=== PATIENT | male | born 1995 | race Caucasian/White ===

== ENCOUNTER 2016-11-09 12:49 | Emergency (ER) | payer SELFPAY ==
[~2016-11-09] VITALS: Ht 180.3 cm; Wt 145.5 kg
[~2016-11-09 12:49] MED LIST: IBUP800T23 PO
[2016-11-09 12:50] VITALS: BP 158/82; PULSE 78; RESP 15; TEMP 98.2; O2SAT 99
[2016-11-09 14:44] VITALS: BP 150/83; PULSE 63; RESP 16; TEMP 98; O2SAT 98
[2016-11-09] MEDS ORDERED: ALUMINUM/MAGNESIUM/SIMETH 30 ML CUP PO ONE (15:30)
[2016-11-09] MEDS ORDERED: SODIUM CHLORIDE 0.9% FLUSH 10 ML FLUSH IV FLUSH PRN (15:30)
[2016-11-09] MEDS ORDERED: LIDOCAINE VISCOUS 2% SOLN 15 ML UDC PO ONE (15:30)
[2016-11-09 15:48] LABS: AUTOMATED NEUTROPHIL # 5.1 TH/MM3 (1.8-7.7); BASOPHIL % 0.6 % (0.0-2.0); EOSINOPHIL # 0.1 TH/MM3 (0-0.4); EOSINOPHIL % 1.2 % (0.0-4.0); HEMATOCRIT 45.3 % (39.0-51.0); HEMO FLAGS DIFF FINAL; LYMPH % 22.7 % (9.0-44.0); LYMPHOCYTE # 1.7 TH/MM3 (1.0-4.8); MEAN CELL VOLUME 88.1 FL (80.0-100.0); MEAN CORPUSCULAR HEMOGLOBIN 29.8 PG (27.0-34.0); MEAN CORPUSCULAR HGB CONC 33.9 % (32.0-36.0); MONO % 8.1 % (0.0-8.0); NEUT % 67.4 % (16.0-70.0); PLATELET COUNT 219 TH/MM3 (150-450); RED BLOOD COUNT 5.15 MIL/MM3 (4.50-5.90); RED CELL DISTRIBUTION WIDTH 12.9 % (11.6-17.2); WHITE BLOOD COUNT 7.6 TH/MM3 (4.0-11.0)
[2016-11-09] MEDS ORDERED: MAAL10003 CHEW (15:55)
--- NOTE | 2016-11-09 15:56 | PD ---
HPI Chief Complaint: Abdominal Pain Time Seen by Provider: 14:38 Travel History International Travel<30 days: No Contact w/Intl Traveler<30days: No Traveled to known affect area: No History of Present Illness HPI The patient's 21 years old. He complains of epigastric abdominal pain in the mornings for one week. Today it persisted throughout the course of the day today leading to ER visit. Appetite normal. No n/v/d. Quality sharp. Last oral intake was steak and shake. PFSH Past Medical History Diminished Hearing: No Immunizations Current: Yes Social History Alcohol Use: No Tobacco Use: No Substance Use: No Allergies-Medications (Allergen,Severity, Reaction): Coded Allergies: No Known Allergies (Verified , 11/09/16) Reported Meds & Prescriptions Reported Meds & Active Scripts Active Maalox Advanced Maximum Strength (Calcium Carbonate-Simethicone) 1,000-60 Mg Chew 1-2 Tab CHEW TID PRN 5 Days Review of Systems Except as stated in HPI: all other systems reviewed are Neg Physical Exam Narrative GENERAL: 21 -year-old male well-nourished well-developed SKIN: Focused skin assessment warm/dry. HEAD: Atraumatic. Normocephalic. EYES: Pupils equal and round. No scleral icterus. No injection or drainage. ENT: No nasal bleeding or discharge. Mucous membranes pink and moist. NECK: Trachea midline. No JVD. CARDIOVASCULAR: Regular rate and rhythm. No murmur appreciated. RESPIRATORY: No accessory muscle use. Clear to auscultation. Breath sounds equal bilaterally. GASTROINTESTINAL: Minimal epigastric tenderness. Soft. MUSCULOSKELETAL: No obvious deformities. No clubbing. No cyanosis. No edema. NEUROLOGICAL: Awake and alert. No obvious cranial nerve deficits. Motor grossly within normal limits. Normal speech. PSYCHIATRIC: Appropriate mood and affect; insight and judgment normal. Data Data Last Documented VS Vital Signs Date Time Temp Pulse Resp B/P Pulse Ox O2 Delivery O2 Flow Rate FiO2 11/09/16 15:42 Room Air 11/09/16 14:44 98.0 63 16 150/83 98 Vital signs reviewed Orders Complete Blood Count With Diff (11/09/16 15:26) Comprehensive Metabolic Panel (11/09/16 15:26) Lipase (11/09/16 15:26) Iv Access Insert/Monitor (11/09/16 15:26) Ecg Monitoring (11/09/16 15:26) Oximetry (11/09/16 15:26) Sodium Chloride 0.9% Flush (Ns Flush) (11/09/16 15:30) Al-Mag Hy-Si 40-40-4 Mg/Ml Liq (Mag-Al P (11/09/16 15:30) Lidocaine 2% Viscous (Xylocaine 2% Visco (11/09/16 15:30) Labs Laboratory Tests Test 11/09/16 15:35 White Blood Count 7.6 TH/MM3 Red Blood Count 5.15 MIL/MM3 Hemoglobin 15.3 GM/DL Hematocrit 45.3 % Mean Corpuscular Volume 88.1 FL Mean Corpuscular Hemoglobin 29.8 PG Mean Corpuscular Hemoglobin 33.9 % Concent Red Cell Distribution Width 12.9 % Platelet Count 219 TH/MM3 Mean Platelet Volume 10.0 FL Neutrophils (%) (Auto) 67.4 % Lymphocytes (%) (Auto) 22.7 % Monocytes (%) (Auto) 8.1 % Eosinophils (%) (Auto) 1.2 % Basophils (%) (Auto) 0.6 % Neutrophils # (Auto) 5.1 TH/MM3 Lymphocytes # (Auto) 1.7 TH/MM3 Monocytes # (Auto) 0.6 TH/MM3 Eosinophils # (Auto) 0.1 TH/MM3 Basophils # (Auto) 0.0 TH/MM3 CBC Comment DIFF FINAL Differential Comment Sodium Level 138 MEQ/L Potassium Level 4.0 MEQ/L Chloride Level 104 MEQ/L Carbon Dioxide Level 25.5 MEQ/L Anion Gap 9 MEQ/L Blood Urea Nitrogen 9 MG/DL Creatinine 1.00 MG/DL Estimat Glomerular Filtration 95 ML/MIN Rate Random Glucose 93 MG/DL Calcium Level 9.1 MG/DL Aspartate Amino Transf 19 U/L (AST/SGOT) Alanine Aminotransferase 35 U/L (ALT/SGPT) Albumin 4.1 GM/DL Lipase 68 U/L MDM Medical Decision Making Medical Screen Exam Complete: Yes Emergency Medical Condition: Yes Medical Record Reviewed: Yes Differential Diagnosis Constipation, Gastritis, Acute Cholecystitis, Biliary Colic, Pancreatitis, REAVES , Hepatitis, Bowel Obstruction, Cystitis, Mesenteric Ischemia, AAA, Appendicitis , Renal Stone/Hydronephrosis, GERD, perforated viscous Narrative Course CBC & BMP Diagram 11/09/16 15:35 LFTs normal Lipase normal The patient is resting comfortably and feels better, is alert and in no distress. The patients results and examination findings were discussed. The repeat examination is unremarkable and benign. The history, exam, diagnostic testing, and current condition do not suggest any significant pathology to warrant further testing, continued ED treatment, admission, or surgical evaluation at this point. The vital signs have been stable. The patient does not have uncontrollable pain, intractable vomiting, or other significant symptoms. The patient's condition is stable and appropriate for discharge. The patient will pursue further outpatient evaluation with a primary care physician or other designated or consulting physician as indicated in the discharge instructions. The patient expressed understanding and was agreeable with this plan. Diagnosis Primary Impression: Abdominal pain Qualified Code: R10.9 - Abdominal pain, unspecified location Referrals: Shaji Restrepo MD 2 days Additional Instructions: You have a choice when it comes to health care, and we are glad that you chose [facility]. Hopefully, we have met your expectations on today's visit. You are welcome to return to [facility] at any time, as we are committed to meeting the health care needs of our community. Med/Other Pt SpecificInfo: No Change to Meds Scripts Calcium Carbonate-Simethicone (Maalox Advanced Maximum Strength)1,000-60 Mg Chew1-2 Tab CHEW TID PRN (INDIGESTION OR UPSET STOMACH) 5 Days Ref 0 Prov:Ross Mathur MD 11/09/16 Disposition: 01 DISCHARGE HOME Condition: Stable Ross Mathur MD Nov 09, 2016 15:56
[2016-11-09 16:09] LABS: ANION GAP 9 MEQ/L (5-15); AST (GOT) 19 U/L (15-39); BICARBONATE 25.5 MEQ/L (21.0-32.0); BLOOD UREA NITROGEN 9 MG/DL (7-18); CHLORIDE 104 MEQ/L (98-107); GLOMERULAR FILTRATION RATE 95 ML/MIN (>89); SODIUM (NA) 138 MEQ/L (136-145)
[2016-11-09 16:10] LABS: ALT (GPT) 35 U/L (9-52)
[2016-11-09 16:11] LABS: ALKALINE PHOSPHATASE 75 U/L (45-117); TOTAL BILIRUBIN ADULT 0.4 MG/DL (0.2-1.0)
== END 2016-11-09 17:01 | disposition home or self-care (01) ==
LOC: NEPE 12:49
DX: R10.9 Unspecified abdominal pain (principal)
CPT/HCPCS: 80053; 83690; 85025; 99283

== ENCOUNTER 2016-11-16 12:56 | Emergency (ER) | payer SELFPAY ==
[~2016-11-16] VITALS: Ht 180.3 cm; Wt 143.5 kg
[~2016-11-16 12:56] MED LIST changes: -IBUP800T23 PO; +MAAL10003 CHEW
[2016-11-16 13:03] VITALS: BP 124/86; PULSE 72; RESP 18; TEMP 98.4; O2SAT 99
[2016-11-16] MEDS ORDERED: [UNRECOGNIZED DRUG - CODE] (13:21)
[2016-11-16] MEDS ORDERED: LIDOCAINE VISCOUS 2% SOLN 15 ML UDC PO ONE (13:30)
[2016-11-16] MEDS ORDERED: ALUMINUM/MAGNESIUM/SIMETH 30 ML CUP PO ONE (13:30)
[2016-11-16] MEDS ORDERED: SODIUM CHLORIDE 0.9% FLUSH 10 ML FLUSH IV FLUSH PRN ×2 (13:30)
[2016-11-16 13:34] VITALS: O2SAT 98
[2016-11-16 13:39] LABS: AUTOMATED NEUTROPHIL # 4.5 TH/MM3 (1.8-7.7); BASOPHIL # 0.1 TH/MM3 (0-0.2); BASOPHIL % 0.9 % (0.0-2.0); EOSINOPHIL # 0.1 TH/MM3 (0-0.4); EOSINOPHIL % 1.4 % (0.0-4.0); HEMATOCRIT 45.5 % (39.0-51.0); HEMO FLAGS DIFF FINAL; LYMPH % 32.5 % (9.0-44.0); LYMPHOCYTE # 2.6 TH/MM3 (1.0-4.8); MEAN CORPUSCULAR HEMOGLOBIN 29.3 PG (27.0-34.0); MEAN CORPUSCULAR HGB CONC 33.3 % (32.0-36.0); MONO % 8.8 % (0.0-8.0); NEUT % 56.4 % (16.0-70.0); PLATELET COUNT 231 TH/MM3 (150-450); RED BLOOD COUNT 5.17 MIL/MM3 (4.50-5.90); RED CELL DISTRIBUTION WIDTH 11.8 % (11.6-17.2)
[2016-11-16 13:49] LABS: CHLORIDE 107 MEQ/L (98-107); POTASSIUM 3.7 MEQ/L (3.5-5.1); SODIUM (NA) 142 MEQ/L (136-145)
[2016-11-16] MEDS ORDERED: NEXI40CA PO (13:52)
[2016-11-16 13:53] LABS: ANION GAP 8 MEQ/L (5-15); BICARBONATE 27.1 MEQ/L (21.0-32.0); BLOOD UREA NITROGEN 12 MG/DL (7-18)
--- NOTE | 2016-11-16 13:54 | PD ---
HPI Chief Complaint: Abdominal Pain Time Seen by Provider: 13:16 Travel History International Travel<30 days: No Contact w/Intl Traveler<30days: No Traveled to known affect area: No History of Present Illness HPI Patient's 21 years old. He arrives with epigastric abdominal pain. He was seen here just over a week ago and diagnosed with gastritis after a workup including CBC CMP and lipase was normal. The patient reports having some success with Pepcid at home. Yesterday he ate [place] food including pork fried rice and boneless ribs. Since then he's had epigastric pain. Specifically worse in the mornings and then goes away. PFSH Past Medical History Diminished Hearing: No Immunizations Current: Yes ?: Not Past Surgical History Surgical History: No Previous Surgery Social History Alcohol Use: No Tobacco Use: No Substance Use: No Allergies-Medications (Allergen,Severity, Reaction): Coded Allergies: No Known Allergies (Verified , 11/16/16) Reported Meds & Prescriptions Reported Meds & Active Scripts Active Nexium (Esomeprazole DR) 40 Mg Capdr 40 Mg PO DAILY 30 Days Review of Systems Except as stated in HPI: all other systems reviewed are Neg Physical Exam Narrative GENERAL: Well-nourished well-developed 21-year-old male no acute distress SKIN: Focused skin assessment warm/dry. HEAD: Atraumatic. Normocephalic. EYES: Pupils equal and round. No scleral icterus. No injection or drainage. ENT: No nasal bleeding or discharge. Mucous membranes pink and moist. NECK: Trachea midline. No JVD. CARDIOVASCULAR: Regular rate and rhythm. No murmur appreciated. RESPIRATORY: No accessory muscle use. Clear to auscultation. Breath sounds equal bilaterally. GASTROINTESTINAL: Soft. Minimal tenderness epigastrium. MUSCULOSKELETAL: No obvious deformities. No clubbing. No cyanosis. No edema. NEUROLOGICAL: Awake and alert. No obvious cranial nerve deficits. Motor grossly within normal limits. Normal speech. PSYCHIATRIC: Appropriate mood and affect; insight and judgment normal. Data Data Last Documented VS Vital Signs Date Time Temp Pulse Resp B/P Pulse Ox O2 Delivery O2 Flow Rate FiO2 11/16/16 15:02 53 16 121/55 100 Room Air 11/16/16 13:03 98.4 Vital signs reviewed Orders Sodium Chloride 0.9% Flush (Ns Flush) (11/16/16 13:30) Al-Mag Hy-Si 40-40-4 Mg/Ml Liq (Mag-Al P (11/16/16 13:30) Lidocaine 2% Viscous (Xylocaine 2% Visco (11/16/16 13:30) Complete Blood Count With Diff (11/16/16 13:24) Comprehensive Metabolic Panel (11/16/16 13:24) Lipase (11/16/16 13:24) Iv Access Insert/Monitor (11/16/16 13:24) Ecg Monitoring (11/16/16 13:24) Oximetry (11/16/16 13:24) Sodium Chloride 0.9% Flush (Ns Flush) (11/16/16 13:30) Morphine Inj (Morphine Inj) (11/16/16 14:15) Ct Abd/Pel W Iv Contrast(Rout) (11/16/16 14:04) Iohexol 350 Inj (Omnipaque 350 Inj) (11/16/16 15:01) Labs Laboratory Tests Test 11/16/16 13:35 White Blood Count 8.0 TH/MM3 Red Blood Count 5.17 MIL/MM3 Hemoglobin 15.1 GM/DL Hematocrit 45.5 % Mean Corpuscular Volume 88.0 FL Mean Corpuscular Hemoglobin 29.3 PG Mean Corpuscular Hemoglobin 33.3 % Concent Red Cell Distribution Width 11.8 % Platelet Count 231 TH/MM3 Mean Platelet Volume 9.6 FL Neutrophils (%) (Auto) 56.4 % Lymphocytes (%) (Auto) 32.5 % Monocytes (%) (Auto) 8.8 % Eosinophils (%) (Auto) 1.4 % Basophils (%) (Auto) 0.9 % Neutrophils # (Auto) 4.5 TH/MM3 Lymphocytes # (Auto) 2.6 TH/MM3 Monocytes # (Auto) 0.7 TH/MM3 Eosinophils # (Auto) 0.1 TH/MM3 Basophils # (Auto) 0.1 TH/MM3 CBC Comment DIFF FINAL Differential Comment Sodium Level 142 MEQ/L Potassium Level 3.7 MEQ/L Chloride Level 107 MEQ/L Carbon Dioxide Level 27.1 MEQ/L Anion Gap 8 MEQ/L Blood Urea Nitrogen 12 MG/DL Creatinine 1.10 MG/DL Estimat Glomerular Filtration 85 ML/MIN Rate Random Glucose 100 MG/DL Calcium Level 9.5 MG/DL Total Bilirubin 0.6 MG/DL Aspartate Amino Transf 26 U/L (AST/SGOT) Alanine Aminotransferase 44 U/L (ALT/SGPT) Alkaline Phosphatase 79 U/L Total Protein 8.2 GM/DL Albumin 4.0 GM/DL Lipase 72 U/L MDM Medical Decision Making Medical Screen Exam Complete: Yes Emergency Medical Condition: Yes Medical Record Reviewed: Yes Differential Diagnosis Constipation, Gastritis, Acute Cholecystitis, Biliary Colic, Pancreatitis, REAVES , Hepatitis, Bowel Obstruction, Cystitis, Mesenteric Ischemia, AAA, Appendicitis , Renal Stone/Hydronephrosis, GERD, perforated viscous Narrative Course CBC normal CMP normal Lipase normal CT pelvis reveals gallbladder stones without signs of cholecystitis and blood work less consistent with acute cholecystitis The patient is resting comfortably and feels better, is alert and in no distress. The patients results and examination findings were discussed. The repeat examination is unremarkable and benign. The history, exam, diagnostic testing, and current condition do not suggest any significant pathology to warrant further testing, continued ED treatment, admission, or surgical evaluation at this point. The vital signs have been stable. The patient does not have uncontrollable pain, intractable vomiting, or other significant symptoms. The patient's condition is stable and appropriate for discharge. The patient will pursue further outpatient evaluation with a primary care physician or other designated or consulting physician as indicated in the discharge instructions. The patient expressed understanding and was agreeable with this plan. Diagnosis Primary Impression: Epigastric abdominal pain Referrals: Shaji Restrepo MD 2 days General Surgeon call for appointment Additional Instructions: You have a choice when it comes to health care, and we are glad that you chose [email or web address]. Hopefully, we have met your expectations on today's visit. You are welcome to return to [email or web address] at any time, as we are committed to meeting the health care needs of our community. Med/Other Pt SpecificInfo: Prescription(s) given Scripts Hydrocodone-Acetaminophen (Lortab)5-325 Mg Tab1-2 Tab PO Q6H PRN (PAIN SCALE 6 TO 10) #12 TAB Ref 0 Prov:Ross Mathur MD 11/16/[address] (Nexium)40 Mg Capdr40 Mg PO DAILY 30 Days Ref 0 Prov:Ross Mathur MD 11/16/16 Disposition: 01 DISCHARGE HOME Condition: Stable Ross Mathur MD Nov 16, 2016 13:54
[2016-11-16 13:56] LABS: ALT (GPT) 44 U/L (9-52); AST (GOT) 26 U/L (15-39); GLOMERULAR FILTRATION RATE 85 ML/MIN (>89)
[2016-11-16 13:57] LABS: TOTAL BILIRUBIN ADULT 0.6 MG/DL (0.2-1.0)
[2016-11-16 13:59] LABS: ALKALINE PHOSPHATASE 79 U/L (45-117)
[2016-11-16] MEDS ORDERED: MORPHINE SULFATE 8 MG/ML INJ IV PUSH ONE (14:15)
[2016-11-16] MEDS ORDERED: IOHEXOL 350 MG/ML 10 ML VIAL (for RAD DIAG) IV ONE (15:01)
[2016-11-16 15:02] VITALS: BP 121/55; PULSE 53; RESP 16; O2SAT 100
--- NOTE | 2016-11-16 15:21 | RADRPT ---
EXAM DATE/TIME: 11/16/2016 14:43 [facility] COMPARISON: No previous studies available for comparison. INDICATIONS : Upper mid abdominal pain for 1 week IV CONTRAST: 95 cc Omnipaque 350 (iohexol) IV ORAL CONTRAST: No oral contrast ingested. RADIATION DOSE: 24.70 CTDIvol (mGy) MEDICAL HISTORY : None SURGICAL HISTORY : None. ENCOUNTER: Initial ACUITY: 1 week PAIN SCALE: 10/10 LOCATION: Bilateral abdomen TECHNIQUE: Volumetric scanning of the abdomen and pelvis was performed. Using automated exposure control and ad justment of the mA and/or kV according to patient size, radiation dose was kept as low as reasonably achievable to obtain optimal diagnostic quality images. DICOM format image data is available electro nically for review and comparison. FINDINGS: LOWER LUNGS: The visualized lower lungs are clear. LIVER: Liver demonstrates low density with areas of sparing around the gallbladder fossa. Liver measures 18. 9 cm in length. There is no dilation of the biliary tree. There are noncalcified stones in the gall bladder. SPLEEN: Normal size without lesion. PANCREAS: Within normal limits. KIDNEYS: Normal in size and shape. There is no mass, stone or hydronephrosis. ADRENAL GLANDS: Within normal limits. VASCULAR: There is no aortic aneurysm. BOWEL/MESENTERY: The stomach, small bowel, and colon demonstrate no acute abnormality. There is no free intraperitone al air or fluid. Appendix is normal. ABDOMINAL WALL: Within normal limits. RETROPERITONEUM: There is no lymphadenopathy. BLADDER: No wall thickening or mass. REPRODUCTIVE: Within normal limits. INGUINAL: There is no lymphadenopathy or hernia. MUSCULOSKELETAL: No acute abnormality. CONCLUSION: 1. No acute finding is identified to explain the clinical symptoms. There is cholelithiasis but there is no gallbladder wall thickening or inflammatory change appreciated. 2. Mild hepatomegaly with steatosis. Greg Berry MD on November 16, 2016 at 15:15 Board Certified Radiologist. This report was verified electronically.
[2016-11-16] MEDS ORDERED: HYDR-3533 PO ×2 (15:26→15:35)
== END 2016-11-16 15:50 | disposition home or self-care (01) ==
LOC: PHED 12:56
DX: R10.13 Epigastric pain (principal)
CPT/HCPCS: 74177; 80053; 83690; 85025; 96374; 99285; J2270; Q9967

== ENCOUNTER 2016-12-07 07:40 | Emergency (ER) | payer MEDICAID ==
[~2016-12-07] VITALS: Ht 180.3 cm; Wt 145.0 kg
[~2016-12-07 07:40] MED LIST changes: +HYDR-3533 PO; -MAAL10003 CHEW; +NEXI40CA PO
[2016-12-07 07:43] VITALS: BP 144/99; PULSE 83; RESP 17; TEMP 98.2; O2SAT 99
[2016-12-07] MEDS ORDERED: ALUMINUM/MAGNESIUM/SIMETH 30 ML CUP PO ONE (08:30)
[2016-12-07] MEDS ORDERED: ONDANSETRON HCL 4 MG/2 ML VIAL IVP ONE (08:30)
[2016-12-07] MEDS ORDERED: PANTOPRAZOLE SODIUM 40 MG VIAL IVP ONE (08:30)
[2016-12-07] MEDS ORDERED: ATROPINE/SCOPOLAM/HYOSCYAM/PB ELIXIR 10 ML CUP PO ONE (08:30)
--- NOTE | 2016-12-07 08:30 | PD ---
HPI Chief Complaint: Abdominal Pain Time Seen by Provider: 08:08 Travel History International Travel<30 days: No Contact w/Intl Traveler<30days: No Traveled to known affect area: No History of Present Illness HPI 21-year-old male complains of epigastric abdominal pain. Patient states that the pain started this morning. Patient denies any nausea vomiting. Patient states that the pain in cramping pain localized to the epigastric area. Patient denies any pain radiation. Patient denies any fever chills. Patient was seen in emergency room on November 09 and November 16, 2016. Patient had epigastric abdominal pain at that time. CT scan abdomen pelvis shows cholelithiasis. Patient was advised to take Nexium and follow-up with local physician. Patient however has not taken the Nexium. Patient also was given prescription for Lortab that he takes once in a while for abdominal pain. Patient denies any dysuria or frequency. Patient denies any fever chills. PFSH Past Medical History Diminished Hearing: No Gastrointestinal Disorders: Yes (GALLSTONES) Immunizations Current: Yes Influenza Vaccination: No Social History Alcohol Use: No Tobacco Use: No Substance Use: No Allergies-Medications (Allergen,Severity, Reaction): Coded Allergies: No Known Allergies (Verified , 12/07/16) Reported Meds & Prescriptions Reported Meds & Active Scripts Active Lortab (Hydrocodone-Acetaminophen) 5-325 Mg Tab 1-2 Tab PO Q6H PRN Review of Systems General / Constitutional: No: Fever Eyes: No: Visual changes HENT: No: Headaches Cardiovascular: No: Chest Pain or Discomfort Respiratory: No: Shortness of Breath Gastrointestinal: Positive: Abdominal Pain Genitourinary: No: Dysuria Musculoskeletal: No: Pain Skin: No Rash Neurologic: No: Weakness Psychiatric: No: Depression Endocrine: No: Polydipsia Hematologic/Lymphatic: No: Easy Bruising Physical Exam Narrative GENERAL: Well-nourished, well-developed patient. SKIN: Focused skin assessment warm/dry. HEAD: Normocephalic. EYES: No scleral icterus. No injection or drainage. NECK: Supple, trachea midline. No JVD or lymphadenopathy. CARDIOVASCULAR: Regular rate and rhythm without murmurs, gallops, or rubs. RESPIRATORY: Breath sounds equal bilaterally. No accessory muscle use. GASTROINTESTINAL: Abdomen soft, nondistended. Patient has mild to moderate tenderness on palpation epigastric area. No rebound tenderness. No mass. MUSCULOSKELETAL: No cyanosis, or edema. BACK: Nontender without obvious deformity. No CVA tenderness. Neurologic exam normal. Data Data Last Documented VS Vital Signs Date Time Temp Pulse Resp B/P Pulse Ox O2 Delivery O2 Flow Rate FiO2 12/07/16 07:43 98.2 83 17 144/99 99 Orders Complete Blood Count With Diff (12/07/16 08:25) Comprehensive Metabolic Panel (12/07/16 08:25) Lipase (12/07/16 08:25) Iv Access Insert/Monitor (12/07/16 08:25) Ecg Monitoring (12/07/16 08:25) Ondansetron Inj (Zofran Inj) (12/07/16 08:30) Pantoprazole Inj (Protonix Inj) (12/07/16 08:30) Al-Mag Hy-Si 40-40-4 Mg/Ml Liq (Mag-Al P (12/07/16 08:30) Ylkbe-Heabqs-Shwnuy-Pb Liq ( Liq (12/07/16 08:30) Us Abdomen Gallbladder (12/07/16 08:46) Morphine Inj (Morphine Inj) (12/07/16 09:30) Morphine Inj (Morphine Inj) (12/07/16 09:30) Labs Laboratory Tests Test 12/07/16 12/07/16 08:35 10:00 White Blood Count 10.3 TH/MM3 Red Blood Count 5.07 MIL/MM3 Hemoglobin 15.0 GM/DL Hematocrit 45.7 % Mean Corpuscular Volume 90.2 FL Mean Corpuscular Hemoglobin 29.7 PG Mean Corpuscular Hemoglobin 32.9 % Concent Red Cell Distribution Width 12.9 % Platelet Count 229 TH/MM3 Mean Platelet Volume 10.5 FL Neutrophils (%) (Auto) 46.0 % Lymphocytes (%) (Auto) 42.6 % Monocytes (%) (Auto) 9.1 % Eosinophils (%) (Auto) 1.8 % Basophils (%) (Auto) 0.5 % Neutrophils # (Auto) 4.7 TH/MM3 Lymphocytes # (Auto) 4.4 TH/MM3 Monocytes # (Auto) 0.9 TH/MM3 Eosinophils # (Auto) 0.2 TH/MM3 Basophils # (Auto) 0.1 TH/MM3 CBC Comment DIFF FINAL Differential Comment Sodium Level 141 MEQ/L Potassium Level 3.8 MEQ/L Chloride Level 107 MEQ/L Carbon Dioxide Level 25.1 MEQ/L Anion Gap 9 MEQ/L Blood Urea Nitrogen 11 MG/DL Creatinine 1.10 MG/DL Estimat Glomerular Filtration 85 ML/MIN Rate Random Glucose 127 MG/DL Calcium Level 9.0 MG/DL Total Bilirubin 0.4 MG/DL Aspartate Amino Transf 18 U/L (AST/SGOT) Alanine Aminotransferase 35 U/L (ALT/SGPT) Alkaline Phosphatase 62 U/L Total Protein 7.6 GM/DL Albumin 3.8 GM/DL Lipase 70 U/L [facility] Medical Decision Making Medical Screen Exam Complete: Yes Emergency Medical Condition: Yes Interpretation(s) Last Impressions Gall Bladder Ultrasound 12/07/16 0846 Signed Impressions: Service Date/Time: Wednesday, December 07, 2016 09:19 - CONCLUSION: Normal examination except for numerous gallstones, mostly mobile. Eliceo Sullivan MD 10:33 AM. CBC within normal limit. CMP within normal limit. Differential Diagnosis Differential diagnosis including gastritis, PUD, pancreatitis, cholecystitis, colitis, UTI, pyelonephritis, nephrolithiasis. Narrative Course 21-year-old male with epigastric abdominal pain. History of recurrent abdominal pain since last month. History of cholelithiasis. Protonix 40 mg IV. Maalox 30 cc. 10 cc by mouth. Morphine 2 mg IV. Diagnosis Primary Impression: Abdominal pain Qualified Code: R10.13 - Epigastric pain Additional Impressions: Gastritis Qualified Code: K29.00 - Acute gastritis without hemorrhage, unspecified gastritis type Cholelithiasis Qualified Code: K80.20 - Calculus of gallbladder without cholecystitis without obstruction Patient Instructions: General Instructions Additional Instructions: Advised patient to take medications as directed. Follow up with GI specialist local physician. Return if worse. Med/Other Pt SpecificInfo: Prescription(s) given Scripts Dicyclomine (Bentyl)10 Mg Cap10 Mg PO TID PRN (Bowel Management) #21 CAP Ref 0 Prov:Yanick Gil MD 12/07/16 Sucralfate (Carafate)1 Gm Tab1 Gm PO QID #120 TAB Ref 0 On empty stomach Prov:Yanick Gil MD 12/07/16 Pantoprazole (Protonix)20 Mg Tab20 Mg PO DAILY #30 TAB Prov:Yanick Gil MD 12/07/16 Disposition: 01 DISCHARGE HOME Condition: Stable Yanick Gil MD Dec 07, 2016 08:30
[2016-12-07 08:45] LABS: AUTOMATED NEUTROPHIL # 4.7 TH/MM3 (1.8-7.7); BASOPHIL # 0.1 TH/MM3 (0-0.2); BASOPHIL % 0.5 % (0.0-2.0); EOSINOPHIL # 0.2 TH/MM3 (0-0.4); EOSINOPHIL % 1.8 % (0.0-4.0); HEMATOCRIT 45.7 % (39.0-51.0); HEMO FLAGS DIFF FINAL; LYMPH % 42.6 % (9.0-44.0); LYMPHOCYTE # 4.4 TH/MM3 (1.0-4.8); MEAN CELL VOLUME 90.2 FL (80.0-100.0); MEAN CORPUSCULAR HEMOGLOBIN 29.7 PG (27.0-34.0); MEAN CORPUSCULAR HGB CONC 32.9 % (32.0-36.0); MONO % 9.1 % (0.0-8.0); PLATELET COUNT 229 TH/MM3 (150-450); RED BLOOD COUNT 5.07 MIL/MM3 (4.50-5.90); RED CELL DISTRIBUTION WIDTH 12.9 % (11.6-17.2); WHITE BLOOD COUNT 10.3 TH/MM3 (4.0-11.0)
[2016-12-07] MEDS ORDERED: MORPHINE SULFATE 4 MG/ML INJ IV PUSH ONE (09:00)
[2016-12-07] MEDS ORDERED: MORPHINE SULFATE 8 MG/ML INJ IV PUSH ONE ×2 (09:30)
--- NOTE | 2016-12-07 09:47 | RADRPT ---
EXAM DATE/TIME: 12/07/2016 09:19 [facility] COMPARISON: No previous studies available for comparison. INDICATIONS : Right upper quadrant pain. MEDICAL HISTORY : Cholelithiasis. Right upper quadrant pain. SURGICAL HISTORY : Right knee surgery. ENCOUNTER: Initial ACUITY: 2 months PAIN SCORE: 5/10 LOCATION: Right upper quadrant MEASUREMENTS: LIVER: 17.9 cm length COMMON DUCT: 2 mm RIGHT KIDNEY: 11.8 x 5.6 x 5.0 cm FINDINGS: LIVER: Normal echotexture without focal lesion or ductal dilatation. COMMON DUCT: No intraluminal mass or stone visualized. GALLBLADDER: Contains numerous stones, however demonstrates no wall thickening or pericholecystic fluid. PANCREAS: The visualized portions are within normal limits. RIGHT KIDNEY: No evidence of hydronephrosis, stone, or mass. CONCLUSION: Normal examination except for numerous gallstones, mostly mobile. Eliceo Sullivan MD on December 07, 2016 at 9:44 Board Certified Radiologist. This report was verified electronically.
[2016-12-07 10:24] LABS: ALT (GPT) 35 U/L (9-52); ANION GAP 9 MEQ/L (5-15); AST (GOT) 18 U/L (15-39); BICARBONATE 25.1 MEQ/L (21.0-32.0); BLOOD UREA NITROGEN 11 MG/DL (7-18); CHLORIDE 107 MEQ/L (98-107); GLOMERULAR FILTRATION RATE 85 ML/MIN (>89); POTASSIUM 3.8 MEQ/L (3.5-5.1); SODIUM (NA) 141 MEQ/L (136-145)
[2016-12-07 10:26] LABS: ALKALINE PHOSPHATASE 62 U/L (45-117); TOTAL BILIRUBIN ADULT 0.4 MG/DL (0.2-1.0)
[2016-12-07] MEDS ORDERED: CARA1TAB6 PO (10:38)
[2016-12-07] MEDS ORDERED: DICY10 PO (10:38)
[2016-12-07] MEDS ORDERED: PANT20 PO (10:38)
[2016-12-07 10:40] VITALS: BP 148/74; PULSE 69; RESP 16; O2SAT 99
== END 2016-12-07 10:51 | disposition home or self-care (01) ==
LOC: NEPE 07:40
DX: K29.00 Acute gastritis without bleeding (principal); K80.20 Calculus of gallbladder without cholecystitis without obstruction
CPT/HCPCS: 76705; 80053; 83690; 85025; 96374; 96375; 99285; C9113; J2270; J2405